=== PATIENT | female | born 1960 | race Caucasian/White ===

== ENCOUNTER 2017-09-27 07:29 | Outpatient (CLI) | payer OTHER ==
--- NOTE | 2017-09-28 09:07 | Mammography Report ---
DIGITAL BASELINE MAMMOGRAM: 09/27/2017 HISTORY: Mother and maternal grandmother with breast cancer. TECHNIQUE: Bilateral digital CC and MLO projections. FINDINGS: There are scattered fibroglandular densities. There is slight asymmetric increased density in the upper outer right breast with faint scattered microcalcifications. There are faint areas of asymmetric density, right breast posterior third upper inner quadrant, and left breast middle third upper inner quadrant. Since this is a baseline study, further evaluation of the right breast by magnification and spot compression views and of the left breast by spot compression views is suggested. IMPRESSION: NEEDS ADDITIONAL EVALUATION BILATERALLY. BIRADS 0 STANDARD QUALIFYING STATEMENTS 1. This examination was reviewed with the aid of Computed-Aided Detection (CAD) . 2. A negative or benign imaging report should not delay biopsy if clinically suspicious findings are present. Consider surgical consultation if warranted. More than 5 % of cancers are not identified by imaging. 3. Dense breasts may obscure an underlying neoplasm. TD: 09/27/2017 18:03 KIRA
== END 2017-09-27 07:30 | disposition home or self-care (01) ==
LOC: DI 07:29
PROVIDERS: ATTEND Internal Medicine
DX: Z12.31 Encounter for screening mammogram for malignant neoplasm of breast (principal); R92.8 Other abnormal and inconclusive findings on diagnostic imaging of breast; Z80.3 Family history of malignant neoplasm of breast
CPT/HCPCS: 77067

== ENCOUNTER 2017-10-20 14:06 | Outpatient (CLI) | payer OTHER ==
--- NOTE | 2017-10-20 17:26 | Mammography Report ---
DIGITAL DIAGNOSTIC BILATERAL MAMMOGRAM: 10/20/2017 CLINICAL INDICATION: Abnormal new baseline examination. COMPARISON: 09/27/2017 TECHNIQUE: Bilateral true lateral and spot compression views, right spot magnification views. FINDINGS: The breasts again demonstrate scattered fibroglandular densities bilaterally. The density noted in the left breast does not persist on additional compression. No underlying mass lesion or architectural distortion is identified. The nodular densities seen in the right upper outer and upper inner quadrants are small intramammary lymph nodes, with fatty rusty well demonstrated on spot compression views. The calcifications in the right upper central breast are predominantly punctate on spot magnification views. No significant pleomorphism is identified. IMPRESSION: PROBABLE BENIGN RIGHT CALCIFICATIONS. RECOMMENDATION: Diagnostic right mammogram in 6 months, to assure stability. BIRADS category: 3, probable benign findings. STANDARD QUALIFYING STATEMENTS 1. This examination was reviewed with the aid of Computed-Aided Detection (CAD). 2. A negative or benign imaging report should not delay biopsy if clinically suspicious findings are present. Consider surgical consultation if warranted. More than 5% of cancers are not identified by imaging. 3. Dense breasts may obscure an underlying neoplasm. TD: 10/20/2017 17:25
== END 2017-10-20 14:07 | disposition home or self-care (01) ==
LOC: DI 14:06
PROVIDERS: ATTEND Internal Medicine
DX: R92.1 Mammographic calcification found on diagnostic imaging of breast (principal)
CPT/HCPCS: 77066

== ENCOUNTER 2018-03-15 12:07 | Outpatient (CLI) | payer OTHER ==
[2018-03-15 12:44] LABS: BASOPHILS # (AUTO) 0.1 10^3/uL (0.0-0.1); BASOPHILS % (AUTO) 1.7 %; EOSINOPHILS # (AUTO) 0.2 10^3/uL (0.0-0.7); EOSINOPHILS % (AUTO) 3.8 %; HGB - HEMOGLOBIN 11.7 g/dL (12.0-16.0); LYMPHOCYTES # (AUTO) 2.1 10^3/uL (1.5-3.5); LYMPHOCYTES % (AUTO) 37.6 %; MEAN CORPUSCULAR HEMOGLOBIN 27.7 pg (27.0-31.0); MEAN CORPUSCULAR HGB CONC 33.4 g/dL (32.0-36.0); MEAN CORPUSCULAR VOLUME 82.9 fL (81.0-99.0); MEAN PLATELET VOLUME 7.7 fL (7.9-10.8); MONOCYTES # (AUTO) 0.5 10^3/uL (0.0-1.0); NEUTROPHILS # (AUTO) 2.7 10^3/uL (1.5-6.6); NEUTROPHILS % (AUTO) 47.9 %; PLT - PLATELET COUNT 370 10^3/uL (130-450); RED BLOOD COUNT 4.22 10^6/uL (4.20-5.40); RED CELL DISTRIBUTION WIDTH 14.7 % (12.0-15.0); WHITE BLOOD COUNT 5.6 x10^3/uL (4.8-10.8)
[2018-03-15 12:51] LABS: ALBUMIN 4.1 g/dL (3.2-5.5); ALBUMIN/GLOBULIN RATIO 1.3 (1.0-2.2); ALKALINE PHOSPHATASE 91 IU/L (42-121); ALT ALANINE AMINOTRANSFERASE 25 IU/L (10-60); AST ASPARTATE AMINOTRANSFERASE 22 IU/L (10-42); BILIRUBIN,TOTAL 0.6 mg/dL (0.2-1.0); BUN - BLOOD UREA NITROGEN 14 mg/dL (6-20); CALCIUM 8.5 mg/dL (8.5-10.3); CARBON DIOXIDE - CO2 28 mmol/L (21-32); CHLORIDE 102 mmol/L (101-111); CHOL/HDL RATIO 2.7 (<4.4); CHOLESTEROL 188 mg/dL; CREATININE 0.7 mg/dL (0.4-1.0); GFR - MDRD 87 (>89); GLUCOSE 115 mg/dL (70-100); HDL CHOLESTEROL 70 mg/dL; LDL CHOLESTEROL,CALCULATED 104 mg/dL; LDL/HDL RATIO 1.5 (<4.4); SODIUM 138 mmol/L (135-145); TOTAL PROTEIN 7.3 g/dL (6.7-8.2); VLDL CHOLESTEROL 14 mg/dL
[2018-03-15 13:58] LABS: HB2 TOTAL 12.2 g/dL; HEMOGLOBIN A1C 0.49 g/dL; HEMOGLOBIN A1C % 5.8 % (4.6-6.2)
[2018-03-15 14:26] LABS: THYROID STIMULATING HORMONE < 0.08 uIU/mL (0.34-5.60)
[2018-03-15 14:33] LABS: FERRITIN 6.1 ng/mL (11.0-306.8)
== END 2018-03-15 12:08 | disposition home or self-care (01) ==
LOC: LAB 12:07
PROVIDERS: ATTEND Internal Medicine
DX: K91.2 Postsurgical malabsorption, not elsewhere classified (principal); E44.0 Moderate protein-calorie malnutrition; E56.9 Vitamin deficiency, unspecified; R53.83 Other fatigue; D50.0 Iron deficiency anemia secondary to blood loss (chronic); E11.9 Type 2 diabetes mellitus without complications; E03.9 Hypothyroidism, unspecified
CPT/HCPCS: 36415; 80053; 80061; 81599; 82306; 82595; 82607; 82728; 82746; 83036; 83721; 83970; 84207; 84425; 84443; 85025

== ENCOUNTER 2018-04-21 08:59 | Outpatient (CLI) | payer OTHER ==
--- NOTE | 2018-04-21 11:36 | Mammography Report ---
Reason: ABN MAMMO - CALCS Procedure Date: 04/21/2018 Accession Number: [id number] / [id number] Procedure: ABBY - Diagnostic Dig RT CPT Code: FULL RESULT: EXAM: Diagnostic Dig RT DATE: 04/21/2018 10:55 AM CLINICAL HISTORY: Probably benign calcifications right breast on screening mammogram, six-month follow-up TECHNIQUE: Additional CC and ML views right breast with magnification views. COMPARISON: 09/27/2017 and 10/20/2017 FINDINGS: The breast tissue is heterogeneously dense. Predominantly punctate calcifications without significant pleomorphism are seen in the right upper outer quadrant. No suspicious clustered microcalcifications are identified. IMPRESSION: Benign findings RECOMMENDATION: Follow-up bilateral mammography in 6 months to include magnification views of the right breast BIRADS CATEGORY 2: Benign findings STANDARD QUALIFYING STATEMENTS: 1. This examination was reviewed with the aid of Computer-Aided Detection (CAD). 2. A negative or benign imaging report should not delay biopsy if clinically suspicious findings are present. Consider surgical consultation if warrented. More than 5% of cancers are not identified by imaging. 3. Dense breasts may obscure an underlying neoplasm.
== END 2018-04-21 09:00 | disposition home or self-care (01) ==
LOC: DI 08:59
PROVIDERS: ATTEND Internal Medicine
DX: R92.1 Mammographic calcification found on diagnostic imaging of breast (principal)

== ENCOUNTER 2018-10-10 08:55 | Outpatient (CLI) | payer OTHER ==
--- NOTE | 2018-10-10 11:11 | Mammography Report ---
Reason: CALCIFICATE Procedure Date: 10/10/2018 Accession Number: [id number] / [id number] Procedure: ABBY - Diagnostic Dig Bilat CPT Code: FULL RESULT: EXAM: Diagnostic Dig Bilat DATE: 10/10/2018 9:52 AM CLINICAL HISTORY: Patient call back for right breast 6 month follow-up (indeterminate microcalcifications). TECHNIQUE: (B) - Bilateral CC and MLO views were obtained. In addition, bilateral 3-D mammography was performed. COMPARISON: 04/21/2018 PARENCHYMAL PATTERN: (A) - The breasts demonstrate scattered fibroglandular densities bilaterally. FINDINGS: Punctate non pleomorphic benign-appearing microcalcifications upper outer quadrant right breast. No further workup required. IMPRESSION: Benign findings. BI-RADS category 2. RECOMMENDATION: (ANNUAL) - Recommend routine annual screening mammography. BI-RADS CATEGORY: (2) - Benign Findings. STANDARD QUALIFYING STATEMENTS: 1. This examination was not reviewed with the aid of Computer-Aided Detection (CAD). 2. A negative or benign imaging report should not preclude biopsy if clinically suspicious findings are present. 3. Dense breasts may obscure an underlying neoplasm. 4. This examination was reviewed with the aid of 3D breast imaging (tomosynthesis).
== END 2018-10-10 08:56 | disposition home or self-care (01) ==
LOC: DI 08:55
PROVIDERS: ATTEND Internal Medicine
DX: R92.0 Mammographic microcalcification found on diagnostic imaging of breast (principal)
CPT/HCPCS: 77066

== ENCOUNTER 2019-01-31 14:44 | Outpatient (CLI) | payer OTHER ==
[2019-01-31 14:54] LABS: BASOPHILS # (AUTO) 0.1 10^3/uL (0.0-0.1); BASOPHILS % (AUTO) 1.3 %; EOSINOPHILS # (AUTO) 0.3 10^3/uL (0.0-0.7); EOSINOPHILS % (AUTO) 3.5 %; HGB - HEMOGLOBIN 11.6 g/dL (12.0-16.0); LYMPHOCYTES # (AUTO) 3.3 10^3/uL (1.5-3.5); LYMPHOCYTES % (AUTO) 38.4 %; MEAN CORPUSCULAR HEMOGLOBIN 25.9 pg (27.0-31.0); MEAN CORPUSCULAR HGB CONC 31.3 g/dL (32.0-36.0); MEAN CORPUSCULAR VOLUME 82.8 fL (81.0-99.0); MEAN PLATELET VOLUME 9.5 fL (7.9-10.8); MONOCYTES # (AUTO) 0.9 10^3/uL (0.0-1.0); NEUTROPHILS % (AUTO) 46.4 %; PLT - PLATELET COUNT 396 10^3/uL (130-450); RED BLOOD COUNT 4.48 10^6/uL (4.20-5.40); RED CELL DISTRIBUTION WIDTH 15.2 % (12.0-15.0); WHITE BLOOD COUNT 8.6 x10^3/uL (4.8-10.8)
[2019-01-31 15:09] LABS: ALBUMIN 4.2 g/dL (3.2-5.5); ALKALINE PHOSPHATASE 90 IU/L (42-121); ALT ALANINE AMINOTRANSFERASE 18 IU/L (10-60); AST ASPARTATE AMINOTRANSFERASE 20 IU/L (10-42); BILIRUBIN,TOTAL 0.4 mg/dL (0.2-1.0); BUN - BLOOD UREA NITROGEN 12 mg/dL (6-20); CALCIUM 8.8 mg/dL (8.5-10.3); CARBON DIOXIDE - CO2 24 mmol/L (21-32); CHLORIDE 101 mmol/L (101-111); CREATININE 0.8 mg/dL (0.4-1.0); GFR - MDRD 74 (>89); GLUCOSE 110 mg/dL (70-100); SODIUM 136 mmol/L (135-145); TOTAL PROTEIN 7.9 g/dL (6.7-8.2)
[2019-01-31 15:13] LABS: BILIRUBIN,DIRECT < 0.1 mg/dL (0.1-0.5)
[2019-01-31 15:37] LABS: THYROID STIMULATING HORMONE 4.62 uIU/mL (0.34-5.60)
[2019-01-31 15:39] LABS: FREE T4 (FREE THYROXINE) 0.77 ng/dL (0.58-1.64)
== END 2019-01-31 14:45 | disposition home or self-care (01) ==
LOC: LAB 14:44
PROVIDERS: ATTEND Physician Assistant
DX: L29.8 Other pruritus (principal); D22.62 Melanocytic nevi of left upper limb, including shoulder; D22.61 Melanocytic nevi of right upper limb, including shoulder; D22.5 Melanocytic nevi of trunk; L82.1 Other seborrheic keratosis; L50.1 Idiopathic urticaria; L57.8 Other skin changes due to chronic exposure to nonionizing radiation; Z08 Encounter for follow-up examination after completed treatment for malignant neoplasm; Z85.820 Personal history of malignant melanoma of skin
CPT/HCPCS: 36415; 80048; 80076; 84439; 84443; 85025

== ENCOUNTER 2019-08-28 14:55 | Outpatient (CLI) | payer BC ==
--- NOTE | 2019-08-28 16:34 | XRAY Report ---
Reason: UNSPECIFIED SUPERFICIAL INJURY OF LEFT HAND, INIT Procedure Date: 08/28/2019 Accession Number: [id number] / [id number] Procedure: XR - Hand 3 View LT CPT Code: Final Report FULL RESULT: EXAM: LEFT HAND RADIOGRAPHY EXAM DATE: 08/28/2019 03:14 PM. CLINICAL HISTORY: UNSPECIFIED SUPERFICIAL INJURY OF LEFT HAND, INIT. Fifth metacarpal/finger pain since hitting the hand on a door in June. COMPARISON: None. TECHNIQUE: 3 views. FINDINGS: Bones: Normal. No fractures or bone lesions. Joints: Normal. No subluxations. Soft Tissues: Normal. No soft tissue swelling. IMPRESSION: Normal left hand radiography. RADIA
== END 2019-08-28 14:56 | disposition home or self-care (01) ==
LOC: DI 14:55
PROVIDERS: ATTEND Internal Medicine
DX: S60.922A Unspecified superficial injury of left hand, initial encounter (principal)

== ENCOUNTER 2020-03-19 10:47 | Day surgery (SDC) | payer BC ==
[2020-03-19] MEDS ORDERED: LACTATED RINGERS 1,000 ML IV ONE (11:14)
[2020-03-19] MEDS ORDERED: MIDAZOLAM 2 MG/2 ML VIAL IVP ONE (14:14)
[2020-03-19] MEDS ORDERED: fentaNYL 250 MCG/5 ML VIAL IVP ONE (14:14)
[2020-03-19 15:21] VITALS: BP 104/56
== END 2020-03-19 10:48 | disposition home or self-care (01) ==
LOC: SDS 10:47
PROVIDERS: ATTEND Surgery
DX: Z12.11 Encounter for screening for malignant neoplasm of colon (principal); K64.8 Other hemorrhoids; Z86.010 Personal history of colon polyps
CPT/HCPCS: 45378; J3010; J7120

== ENCOUNTER 2020-06-07 06:59 | Outpatient (CLI) | payer BC ==
[2020-06-07] MEDS ORDERED: IOVERSOL 320 100 ML VIAL IVP ONE ×2 (07:12→08:12)
[2020-06-07] MEDS ORDERED: IOVERSOL 320 50 ML VIAL ONE (07:12)
[2020-06-07] MEDS ORDERED: IOVERSOL 320 50 ML VIAL PO ONE (08:12)
--- NOTE | 2020-06-07 10:26 | CT Report ---
PROCEDURE: Abdomen/Pelvis W INDICATIONS: LLQ PAIN CONTRAST: IV CONTRAST: Optiray 320 ml: 100 PO CONTRAST: Optiray 320 ml50 TECHNIQUE: After the administration of IV and oral contrast, 5 mm thick sections acquired from the diaphragms to the symphysis. 5 mm thick coronal and sagittal reformats were acquired. For radiation dose reducti on, the following was used: automated exposure control, adjustment of mA and/or kV according to julisa ent size. COMPARISON: None. FINDINGS: Image quality: Excellent. ABDOMEN: Lung bases: Lung bases are clear. Heart size is normal. Solid organs: Liver and spleen are normal in size and enhancement. Gallbladder is not well seen eit her contracted or absent. There are postsurgical changes seen in the region of the stomach. Biliary system is non dilated. Pancreas enhances normally. No adrenal nodules. Kidneys demonstrate normal size and enhancement, without hydronephrosis. Peritoneum and bowel: There are scattered air-fluid levels. No pathologic dilatation or specific rico sition point. Mild to moderate stool. No definite bowel wall thickening. No free fluid or air. Danay l appendix. No evidence of acute diverticulitis. Nodes and vessels: No retroperitoneal or mesenteric adenopathy by size criteria. Aorta and inferior vena cava are normal in size. Miscellaneous: No ventral hernias. PELVIS: Genitourinary: Bladder wall thickness is normal. Miscellaneous: No inguinal hernias or adenopathy. Bones: No suspicious bony lesions. Spondylitic changes and facet arthropathy. No vertebral body comp ression fractures. IMPRESSION: Normal appendix Fluid-filled small bowel loops with numerous air-fluid levels. Findings raise possibility of low-grad e enteritis and/or malabsorption. No specific evidence of bowel obstruction although continued surveillance with abdominal radiographs could be performed if the patient's symptoms do not improve. Reviewed by: Arsen Berry MD on 06/07/2020 10:25 AM PST Approved by: Arsen Berry MD on 06/07/2020 10:25 AM PST Station ID: [id number]
== END 2020-06-07 07:00 | disposition home or self-care (01) ==
LOC: DI 06:59
PROVIDERS: ATTEND Internal Medicine
DX: R10.32 Left lower quadrant pain (principal); Z79.899 Other long term (current) drug therapy
CPT/HCPCS: 74177; Q9967

== ENCOUNTER 2021-06-29 08:00 | Outpatient (CLI) | payer BC | END 2021-06-29 23:59 | LOC: LAB.R 08:00 | PROVIDERS: ATTEND Internal Medicine | DX: E03.9 Hypothyroidism, unspecified (principal) | CPT/HCPCS: 84443 ==

== ENCOUNTER 2022-03-24 14:31 | Outpatient (CLI) | payer OTHER ==
--- NOTE | 2022-03-25 21:10 | Ultrasound Report ---
PROCEDURE: Pelvic w/Transvaginal INDICATIONS: PELVIC PAIN TECHNIQUE: Real-time scanning was performed of the pelvic organs, with image documentation. Additional endovagi nal scanning was necessary due to incomplete visualization of the adnexal and endometrial structures by transabdominal scanning. COMPARISON: None. FINDINGS: Anteverted uterus measuring 3.8 x 4.6 x 7.9 cm. Diffusely coarsened heterogenous echotexture. There i s a fibroid which appears to be intramural in the anterior uterine wall just left of midline measurin g 1.9 x 1.2 x 1.7 cm. More inferiorly there is an additional anterior intramural uterine fibroid cherrie uring 1.1 x 1.1 x 1.2 cm. Neither ovary is identified due to obscuration by bowel gas. IMPRESSION: At least two intramural uterine fibroids. Diffusely coarsened and heterogenous echotextu re of the uterus may represent the presence of additional fibroids or potentially adenomyosis. Reviewed by: Alvaro Alvarez MD on 03/25/2022 9:09 PM PDT Approved by: Alvaro Alvarez MD on 03/25/2022 9:09 PM PDT Station ID: [id number]
== END 2022-03-24 14:32 | disposition home or self-care (01) ==
LOC: DI 14:31
PROVIDERS: ATTEND Internal Medicine
DX: D25.1 Intramural leiomyoma of uterus (principal)

== ENCOUNTER 2022-04-23 14:21 | Outpatient (CLI) | payer OTHER ==
--- NOTE | 2022-04-26 09:39 | Mammography Report ---
BILATERAL DIGITAL SCREENING MAMMOGRAM 3D/2D: 04/23/2022 CLINICAL: Routine screening. Comparison is made to exams dated: 10/10/2018 mammogram, 04/21/2018 mammogram, 10/20/2017 mammogram, a nd 09/27/2017 mammogram - [facility]. There are scattered areas of fibroglandular density in both breasts (category b / 25%-50% glandular t issue). No significant masses, calcifications, or other findings are seen in either breast. There has been no significant interval change. IMPRESSION: NEGATIVE There is no mammographic evidence of malignancy. A 1 year screening mammogram is recommended. Based on the Tyrer Cuzick model (a risk assessment model) the patients lifetime risk is 8.5% and her 10 year risk is 3.4%. According to the ACR, ACS, and NCCN guidelines, an annual breast MRI exam alcira g with mammogram is recommended if the patients lifetime risk is 20% or greater. This exam was interpreted at Station ID: [id number]. NOTE: For mammograms, a report in lay terms will be sent to the patient. Approximately 15% of breast malignancies will not be visualized mammographically. In the management of a palpable breast mass, a negative mammogram must not discourage biopsy of a clinically suspicious lesion. Electronically Signed By: Pat meehan/ilya:04/23/2022 17:14:47 ACR BI-RADS Category 1: Negative 3341F PARENCHYMAL PATTERN: (A) - The breast(s) demonstrate(s) scattered fibroglandular densities. BI-RADS CATEGORY: (1) - 1 RECOMMENDATION: (ANNUAL) - Recommend routine annual screening mammography. [id number] 1 year screening LATERALITY: (B)
== END 2022-04-23 14:22 | disposition home or self-care (01) ==
LOC: DI 14:21
PROVIDERS: ATTEND Obstetrics & Gynecology
DX: Z12.31 Encounter for screening mammogram for malignant neoplasm of breast (principal)

== ENCOUNTER 2023-04-22 18:52 | Emergency (ER) | payer OTHER ==
[2023-04-22 19:07] VITALS: BP 132/98; O2SAT 100
--- NOTE | 2023-04-22 19:42 | XRAY Report ---
PROCEDURE: Wrist 4 View LT INDICATIONS: fall TECHNIQUE: 4 views of the wrist were acquired. COMPARISON: None. FINDINGS: Bones: Suspected nondisplaced fracture of the distal radial metadiaphysis, probably extending to the intra-articular surface. Nondisplaced ulnar styloid fracture. Soft tissues: No suspicious soft tissue calcifications or masses. IMPRESSION: Suspected intra-articular fracture of the distal radius. On displaced ulnar styloid fracture. Reviewed by: Alexandro Bingham on 04/22/2023 7:40 PM PDT Approved by: Alexandro Bingham on 04/22/2023 7:40 PM PDT Station ID: [id number]
[2023-04-22] MEDS ORDERED: oxyCODONE/ACET 5/325 Prepack 4 PO STA (20:07)
--- NOTE | 2023-04-22 20:36 | ED Physician Documentation ---
PD HPI UPPER EXT INJURY - Stated complaint Stated Complaint: LT WRIST INJ - Chief complaint Chief Complaint: Trauma Ext - History obtained from History obtained from: Patient - Additonal information Additional information: Patient is a 62-year-old female who is presenting for evaluation of left wrist pain after a trip and fall and landing with her arm outstretched. She denies hitting her head. No LOC. Does not take a blood thinner. She is right-hand dominant. Injury occurred just prior to arrival. Review of Systems Musculoskeletal: reports: Extremity pain, Extremity swelling Neurologic: denies: Head injury PD PAST MEDICAL HISTORY - Past Medical History Cardiovascular: None Respiratory: None Endocrine/Autoimmune: HyPERthyroidism GI: None : None HEENT: None Psych: Depression Musculoskeletal: None Derm: Other - Past Surgical History General: Cholecystectomy, Gastric surgery Derm: Skin cancer surgery - Present Medications Home Medications: Ambulatory Orders Medication Instructions Recorded Confirmed Levothyroxine [Synthroid] 175 mcg PO DAILY 03/19/20 04/22/23 Oxycodone HCl/Acetaminophen 1 each PO Q6H PRN #14 tablet 04/22/23 [Percocet 5-325 mg Tablet] - Allergies Allergies/Adverse Reactions: Allergies Allergy/AdvReac Type Severity Reaction Status Date / Time shrimp Allergy Rash Verified 04/22/23 19:32 - Social History Does the pt smoke?: No Smoking Status: Never smoker PD ED PE NORMAL - General General: Alert and oriented X 3, No acute distress, Well developed/nourished - HEENT HEENT: Atraumatic - Extremities Extremities: Other (Tenderness and swelling to left wrist with no significant deformity, normal range of motion at left elbow, strong radial pulse, no t enderness over hand or more proximally in forearm) - Neuro Neuro: Alert and oriented X 3, No motor deficit, No sensory deficit, Normal speech Results - Vitals Vitals: Vital Signs - 24 hr 04/22/23 18:59 Temperature 36.5 C Heart Rate 85 Respiratory 16 Rate Blood Pressure 132/98 H O2 Saturation 100 PD Medical Decision Making - ED course Complexity details: reviewed results, re-evaluated patient, d/w patient ED course: Patient presenting for evaluation of left Wrist injury after a trip and fall. The has swelling and tenderness to the site but no significant deformity. Neuro vascularly intact. No head injury. X-ray was obtained which I reviewed and there are findings of a ulnar styloid fracture as well as an intra-articular radial fracture. Patient was placed into a splint. She was given a prescription for pain medication and instructions on follow-up for orthopedic surgery. Patient counseled on concerning symptoms to return for. Departure - Departure Disposition: 01 Home, Self Care Clinical Impression: Left wrist fracture Condition: Stable Instructions: ED Fx Wrist General Follow-Up: Richmond Dash MD [Provider Admit Priv/Credential] - Prescriptions: Oxycodone HCl/Acetaminophen [Percocet 5-325 mg Tablet] 1 each PO Q6H PRN #14 tablet PRN Reason: pain Comments: You have a fracture in the left wrist and we have applied a splint. I have sent you home with a small amount of narcotic pain medication. Please use this only as directed. I have also sent a prescription to [facility] in [place]. I would recommend close follow-up with our orthopedic surgeon and have listed his information. Please keep your splint clean and dry. Return to the emergency department with any worsening symptoms. IMPRESSION: Suspected intra-articular fracture of the distal radius. On displaced ulnar styloid fracture. Forms: PCP List Discharge Date/Time: 04/22/23 20:59
== END 2023-04-22 20:59 | disposition home or self-care (01) ==
LOC: ED 18:52
DX: S52.572A Other intraarticular fracture of lower end of left radius, initial encounter for closed fracture (principal); S52.615A Nondisplaced fracture of left ulna styloid process, initial encounter for closed fracture; W01.0XXA Fall on same level from slipping, tripping and stumbling without subsequent striking against object, initial encounter
CPT/HCPCS: 99283

== ENCOUNTER 2023-04-28 08:00 | Outpatient (CLI) | payer OTHER ==
--- NOTE | 2023-04-28 15:34 | XRAY Report ---
PROCEDURE: Wrist 3 View LT INDICATIONS: LEFT WRIST PAIN TECHNIQUE: 3 views of the wrist were acquired. COMPARISON: 04/22/2023 FINDINGS: Bones: Very earliest progress in healing of a comminuted distal radial fracture extending to the art icular surface. It is nondisplaced. There is increased fracture lucency noted. A nondisplaced ulnar s tyloid avulsion is also noted. Severe first carpometacarpal joint degenerative arthritis is incidenta lly noted. Soft tissues: No suspicious soft tissue calcifications or masses. IMPRESSION: Comminuted distal, nondisplaced radial fracture extending to the articular surface with very early he aling occurring, associated nondisplaced ulnar styloid avulsion. Reviewed by: Ra Campbell MD on 04/28/2023 3:33 PM PDT Approved by: Ra Campbell MD on 04/28/2023 3:33 PM PDT Station ID: [id number]
== END 2023-04-28 23:59 | disposition home or self-care (01) ==
LOC: DI.WOS 08:00
PROVIDERS: ATTEND Orthopaedic Surgery
DX: S52.502D Unspecified fracture of the lower end of left radius, subsequent encounter for closed fracture with routine healing (principal)

== ENCOUNTER 2023-05-02 08:00 | Outpatient (CLI) | payer OTHER ==
--- NOTE | 2023-05-02 16:37 | XRAY Report ---
PROCEDURE: Knee 4 View LT INDICATIONS: LEFT KNEE PAIN TECHNIQUE: 04 views of the knee(s) were acquired. COMPARISON: None. FINDINGS: Bones: No fractures or dislocations. No suspicious bony lesions. Severe tricompartment periarticu lar osteophyte formation. Soft tissues: No knee joint effusion. No suspicious soft tissue calcifications or masses. IMPRESSION: Osteoarthritis. No acute fracture. No osseous lesion. If symptoms and/or clinical suspicion for patho logy continue, further assessment with repeat plain films, or advanced imaging (e.g., CT, MRI, or bon e scan) is recommended for further assessment. Reviewed by: Ramesh Rivero MD on 05/02/2023 4:36 PM PST Approved by: Ramesh Rivero MD on 05/02/2023 4:36 PM PST Station ID: [id number]
== END 2023-05-02 23:59 | disposition home or self-care (01) ==
LOC: DI.WOS 08:00
PROVIDERS: ATTEND Orthopaedic Surgery
DX: M17.12 Unilateral primary osteoarthritis, left knee (principal)

== ENCOUNTER 2023-05-13 07:38 | Outpatient (CLI) | payer OTHER ==
[2023-05-13 08:10] LABS: BASOPHILS # (AUTO) 0.1 10^3/uL (0.0-0.1); BASOPHILS % (AUTO) 1.9 %; EOSINOPHILS # (AUTO) 0.3 10^3/uL (0.0-0.7); EOSINOPHILS % (AUTO) 4.1 %; HCT - HEMATOCRIT 35.8 % (37.0-47.0); HGB - HEMOGLOBIN 11.1 g/dL (12.0-16.0); LYMPHOCYTES # (AUTO) 2.1 10^3/uL (1.5-3.5); MEAN CORPUSCULAR HEMOGLOBIN 25.6 pg (27.0-31.0); MEAN CORPUSCULAR VOLUME 82.5 fL (81.0-99.0); MEAN PLATELET VOLUME 9.4 fL (7.9-10.8); MONOCYTES # (AUTO) 0.5 10^3/uL (0.0-1.0); MONOCYTES % (AUTO) 8.1 %; NEUTROPHILS # (AUTO) 3.3 10^3/uL (1.5-6.6); NEUTROPHILS % (AUTO) 52.7 %; PLT - PLATELET COUNT 480 10^3/uL (130-450); RED BLOOD COUNT 4.34 10^6/uL (4.20-5.40); RED CELL DISTRIBUTION WIDTH 15.4 % (12.0-15.0); WHITE BLOOD COUNT 6.3 x10^3/uL (4.8-10.8)
[2023-05-13 08:30] LABS: % IRON SATURATION 6 % (20-50); ALBUMIN 4.4 g/dL (3.2-5.5); ALBUMIN/GLOBULIN RATIO 1.7 (1.0-2.2); ALKALINE PHOSPHATASE 79 IU/L (42-121); ALT ALANINE AMINOTRANSFERASE 11 IU/L (10-60); AST ASPARTATE AMINOTRANSFERASE 14 IU/L (10-42); BILIRUBIN,TOTAL 0.4 mg/dL (0.2-1.0); BUN - BLOOD UREA NITROGEN 8 mg/dL (6-20); CALCIUM 8.8 mg/dL (8.5-10.3); CARBON DIOXIDE - CO2 25 mmol/L (21-32); CHLORIDE 105 mmol/L (101-111); CHOL/HDL RATIO 2.9 (<4.4); CHOLESTEROL 225 mg/dL; CREATININE 0.6 mg/dL (0.6-1.3); GFR - MDRD 102 (>89); GLUCOSE 113 mg/dL (74-104); HDL CHOLESTEROL 77 mg/dL; IRON 35 ug/dL (50-212); LDL CHOLESTEROL,CALCULATED 129 mg/dL; LDL/HDL RATIO 1.7 (<4.4); SODIUM 137 mmol/L (135-145); TOTAL IRON BINDING CAPACITY 570 ug/dL (250-450); TRANSFERRIN 407 mg/dL (203-362); TRIGLYCERIDES 97 mg/dL (48-352); VLDL CHOLESTEROL 19 mg/dL
[2023-05-13 08:40] LABS: THYROID STIMULATING HORMONE 2.95 uIU/mL (0.34-5.60)
[2023-05-13 08:48] LABS: FERRITIN 4.1 ng/mL (11.0-306.8)
[2023-05-13 11:50] LABS: ESTIMATED AVERAGE GLUCOSE 131 mg/dL (70-100); HEMOGLOBIN A1c% 6.2 % (4.27-6.07)
[2023-05-14 04:09] LABS: VITAMIN D 25-HYDROXY 5.6 ng/mL (30.0-100.0)
[2023-05-17 07:10] LABS: VITAMIN A SERUM 36.2 ug/dL (22.0-69.5)
== END 2023-05-13 07:39 | disposition home or self-care (01) ==
LOC: LAB 07:38
PROVIDERS: ATTEND Surgery
DX: K91.2 Postsurgical malabsorption, not elsewhere classified (principal)
CPT/HCPCS: 36415; 80053; 80061; 82306; 82390; 82525; 82607; 82728; 82746; 83036; 83540; 83721; 83970; 84425; 84443; 84466; 84590; 84630; 85025

== ENCOUNTER 2023-05-31 11:00 | Outpatient (CLI) | payer OTHER ==
--- NOTE | 2023-05-31 15:29 | XRAY Report ---
PROCEDURE: Wrist 3 View LT INDICATIONS: LEFT WRIST FRACTURE TECHNIQUE: 3 views of the wrist were acquired. COMPARISON: X-ray wrist 04/28/2023 FINDINGS: Bones: Comminuted distal radial fracture with lucencies extending to the articular surface. There is stable alignment with minimal interval healing. Nondisplaced ulnar styloid fracture is present. Prom inent first CMC arthritic change. Soft tissues: No suspicious soft tissue calcifications or masses. IMPRESSION: Stable alignment with minimal interval healing of distal radial as well as ulnar styloid fractures. Reviewed by: Martha Benson MD on 05/31/2023 3:28 PM PST Approved by: Martha Benson MD on 05/31/2023 3:28 PM [facility] Station ID: [id number]
== END 2023-05-31 23:59 | disposition home or self-care (01) ==
LOC: DI.WOS 11:00
PROVIDERS: ATTEND Orthopaedic Surgery
DX: S52.532D Colles' fracture of left radius, subsequent encounter for closed fracture with routine healing (principal)

== ENCOUNTER 2023-07-08 07:54 | Outpatient (CLI) | payer OTHER ==
--- NOTE | 2023-07-11 11:52 | Mammography Report ---
BILATERAL DIGITAL SCREENING MAMMOGRAM 3D/2D: 07/08/2023 CLINICAL: Routine screening. Comparison is made to exams dated: 04/23/2022 mammogram, 10/10/2018 mammogram, 09/27/2017 mammogram, an d 10/20/2017 mammogram - [facility]. Both breasts are heterogeneously dense, which may obscure small masses (category c / 51-75% glandular tissue). No significant masses, calcifications, or other findings are seen in either breast. There has been no significant interval change. IMPRESSION: NEGATIVE There is no mammographic evidence of malignancy. A 1 year screening mammogram is recommended. Based on the Tyrer Cuzick model (a risk assessment model) the patients lifetime risk is 12.4% and he r 10 year risk is 5.2%. According to the ACR, ACS, and NCCN guidelines, an annual breast MRI exam alex ng with mammogram is recommended if the patients lifetime risk is 20% or greater. This exam was interpreted at Station ID: [id number]. NOTE: For mammograms, a report in lay terms will be sent to the patient. Approximately 15% of breast malignancies will not be visualized mammographically. In the management of a palpable breast mass, a negative mammogram must not discourage biopsy of a clinically suspicious lesion. Electronically Signed By: Urban anders/ilya:07/08/2023 17:24:59 letter sent: No_Letter ACR BI-RADS Category 1: Negative 3341F PARENCHYMAL PATTERN: (D) - The breast(s) demonstrate(s) heterogeneously dense fibroglandular keri mesa. BI-RADS CATEGORY: (1) - 1 Mammogram [id number] 1 year screening LATERALITY: (B)
== END 2023-07-08 07:55 | disposition home or self-care (01) ==
LOC: DI 07:54
PROVIDERS: ATTEND Internal Medicine
DX: Z12.31 Encounter for screening mammogram for malignant neoplasm of breast (principal); R92.333 Mammographic heterogeneous density, bilateral breasts

== ENCOUNTER 2023-07-22 08:07 | Outpatient (CLI) | payer OTHER ==
--- NOTE | 2023-07-22 13:44 | DEXA Report ---
PROCEDURE: Dexa Spine and/or Hip INDICATIONS: LEFTY RADIUS FX TECHNIQUE: Dual energy x-ray absorptiometry (DXA) was performed on a [employer] System. Regions measur ed are the AP Spine, femoral neck, and if needed forearm. COMPARISON: None FINDINGS: Lumbar Spine: Bone Mineral Density 1.224 g/cm/cm,T score 0.4. Left Femoral Neck: Bone Mineral Density 0.755 g/cm/cm, T score -2.0. Left Hip: Bone Mineral Density 0.863 g/cm/cm,T score -1.1. (T score greater or equal to -1.0: NORMAL) (T score from -1.1 to -2.4: OSTEOPENIA) (T score less than or equal to -2.5 to: OSTEOPOROSIS) Impression: By WHO criteria, this patient has low bone density (osteopenia). Normal bone mineral density of the lumbar spine. Osteopenia of the hip. Patients with diagnosis of osteoporosis or osteopenia should have regular bone mineral density assess ment. For those eligible for Medicare, routine testing is allowed once every 2 years. Testing frequ ency can be increased for patients who have rapidly progressing disease or for those who are receivin g medical therapy to restore bone mass. Reviewed by: Pat Walsh MD on 07/22/2023 1:42 PM PST Approved by: Pat Walsh MD on 07/22/2023 1:42 PM PST Station ID: [id number]
== END 2023-07-22 08:08 | disposition home or self-care (01) ==
LOC: DI 08:07
PROVIDERS: ATTEND Orthopaedic Surgery
DX: S52.532A Colles' fracture of left radius, initial encounter for closed fracture (principal); M85.89 Other specified disorders of bone density and structure, multiple sites

== ENCOUNTER 2024-03-09 10:23 | Outpatient (CLI) | payer OTHER | END 2024-03-09 10:24 | disposition home or self-care (01) | LOC: NS 10:23 | PROVIDERS: ATTEND Internal Medicine | DX: E11.9 Type 2 diabetes mellitus without complications (principal); R03.0 Elevated blood-pressure reading, without diagnosis of hypertension; E66.9 Obesity, unspecified; Z68.41 Body mass index [BMI] 40.0-44.9, adult; Z71.3 Dietary counseling and surveillance; Z71.89 Other specified counseling | CPT/HCPCS: 97802 ==